=== PATIENT | male | born 1965 | race Caucasian/White ===

== ENCOUNTER 2018-07-15 22:25 | Emergency (ER) | payer SELFPAY ==
--- NOTE | 2018-07-15 23:22 | C.PDOC ---
History Of Present Illness 52 year old male presents to the ER with a complaint of a headache that began earlier today. Patient noticed his BP at home was in the 140s so he took an extra dose of his enalapril. He also complains of lower back pain and left knee pain which is not new, he has had MRIs done for them before in the past. Patient still complains of headache, back pain, and knee pain but otherwise denies chest pain, SOB, dizziness, fever, or other symptoms. Time Seen by Provider: 07/15/18 22:47 Chief Complaint (Nursing): High Blood Pressure History Per: Patient History/Exam Limitations: no limitations Onset/Duration Of Symptoms: Hrs Current Symptoms Are (Timing): Still Present Preceeding Symptoms: None Associated Symptoms: denies: Photophobia, Blurred Vision, Nausea, Vomiting, Extremity Weakness Recent travel outside of the [place]: No Past Medical History Reviewed: Historical Data, Nursing Documentation, Vital Signs Vital Signs: Last Vital Signs Temp 97.8 F 07/15/18 22:39 Pulse 76 07/15/18 22:39 Resp 20 07/15/18 22:39 BP 109/75 07/15/18 22:55 Pulse Ox 97 07/15/18 22:39 - Medical History PMH: HTN, Hypercholesterolemia Family History: States: Unknown Family Hx - Social History Hx Alcohol Use: No Hx Substance Use: No - Immunization History Hx Tetanus Toxoid Vaccination: No Hx Influenza Vaccination: No Hx Pneumococcal Vaccination: No Review Of Systems Constitutional: Negative for: Fever, Chills Cardiovascular: Negative for: Chest Pain, Palpitations Respiratory: Negative for: Cough, Shortness of Breath Gastrointestinal: Negative for: Nausea, Vomiting Musculoskeletal: Positive for: Back Pain (Lower), Other (Left knee pain) Neurological: Positive for: Headache. Negative for: Weakness, Numbness, Dizziness Physical Exam - Physical Exam Appears: Non-toxic Skin: Normal Color, Warm, Dry Head: Atraumatic, Normacephalic Eye(s): bilateral: Normal Inspection Oral Mucosa: Moist Neck: Normal, Supple Chest: Symmetrical, No Tenderness Cardiovascular: Rhythm Regular, Other (BP 109/75) Respiratory: Normal Breath Sounds, No Rales, No Rhonchi, No Wheezing Gastrointestinal/Abdominal: Soft, No Tenderness Back: No CVA Tenderness, No Vertebral Tenderness, No Paraspinal Tenderness Extremity: Normal ROM (x4), No Tenderness, Capillary Refill (<2 seconds), No Deformity Pulses: Left Dorsalis Pedis: Normal, Right Dorsalis Pedis: Normal Neurological/Psych: Oriented x3, Normal Speech, Normal Motor, Normal Sensation Gait: Steady ED Course And Treatment O2 Sat by Pulse Oximetry: 97 (Room air) Pulse Ox Interpretation: Normal Medical Decision Making Medical Decision Making: Plan: Toradol Patient re-evaluated, lying comfortably in stretcher on phone. States that his pain has improved. Advised NSAIDs at home for pain. Follow up with PMD as outpatient as needed. BP 107 systolic. No chest pain, dyspnea, dizziness, or any other symptoms throughout ED course. Disposition - Disposition Disposition: HOME/ ROUTINE Disposition Time: 00:30 Condition: GOOD Forms: [facility] (Lithuanian) - Clinical Impression Clinical Impression: Headache, Back pain, Knee pain - Scribe Statement The provider has reviewed the documentation as recorded by the Scribe Vahe Wilson All medical record entries made by the Scribe were at my direction and personally dictated by me. I have reviewed the chart and agree that the record accurately reflects my personal performance of the history, physical exam, medical decision making, and the department course for this patient. I have also personally directed, reviewed, and agree with the discharge instructions and disposition.
[2018-07-16 00:14] VITALS: BP 107/74; PULSE 60; RESP 19; TEMP 98.1
[2018-07-16 00:34] VITALS: O2SAT 97
== END 2018-07-16 01:01 | disposition home or self-care (01) ==
LOC: C.ER 22:25
DX: R51 Headache (principal); M54.9 Dorsalgia, unspecified; M25.562 Pain in left knee; I10 Essential (primary) hypertension; E78.00 Pure hypercholesterolemia, unspecified
CPT/HCPCS: 82948; 96374; 99285; J1885